=== PATIENT | male | born 1990 | race Caucasian/White ===

== ENCOUNTER 2016-04-25 15:29 | Emergency (ER) | payer MEDICAID ==
[2016-04-25] MEDS ORDERED: OPTIRAY 350 100 ML VIAL HMH IV ONE (15:30)
[2016-04-25] MEDS ORDERED: ONDANSETRON 4 MG VIAL ONE (16:01)
[2016-04-25] MEDS ORDERED: SODIUM CHLORIDE 0.9% 1,000 ML ONE (16:01)
[2016-04-25] MEDS ORDERED: DICYCLOMINE 20MG/2ML VIAL IM ONE (16:40)
== END 2016-04-25 19:28 | disposition home or self-care (01) ==
LOC: ER 15:29
DX: K29.00 Acute gastritis without bleeding (principal); K59.00 Constipation, unspecified
CPT/HCPCS: 36415; 74177; 80053; 81001; 82274; 83690; 85025; 87088; 96361; 96372; 96374